=== PATIENT | male | born 1985 | race Two or more races ===

== ENCOUNTER 2016-12-20 16:29 | Emergency (ER) | payer SELFPAY ==
[2016-12-20] MEDS ORDERED: ONDANSETRON 4 MG/2ML 2 ML VIAL ONE (17:05)
[2016-12-20] MEDS ORDERED: SODIUM CHLORIDE 0.9% 1,000 ML ONE (17:05)
[2016-12-20 17:54] LABS: ALB/GLOB RATIO 1.6 (>1.0); ALBUMIN 4.4 gm/dL (3.5-5.7); CALCIUM 9.2 mg/dL (8.6-10.3)
[2016-12-20 17:57] LABS: ABSOLUTE NEUTROPHIL COUNT 4.3 K/mm3 (1.8-7.7); BASO % 0.4 % (0.2-1.0); EOS # 0.5 (0.0-0.5); EOS % 6.5 % (0.9-2.9); HEMATOCRIT 45.2 % (32.0-52.0); HEMOGLOBIN 15.6 gm/l (14.0-18.0); IMM NEUT # 0.1 K/mm3 (0-0.2); IMM NEUT% 0.6 % (0-1); LYMPH # 2.7 (1.0-4.8); LYMPH % 32.7 % (15-45); MEAN CELL VOLUME 89.3 fl (80.0-94.0); MEAN CORPUSCULAR HEMOGLOBIN 30.8 pg (27.0-31.0); MEAN CORPUSCULAR HGB CONC 34.5 g/dl (33.0-37.0); MEAN PLATELET VOLUME 10.6 fl (7.4-10.4); MONO # 0.5 (0.0-0.8); MONO % 6.5 % (4-12); NEUT % 53.3 % (43-75); PLATELET COUNT 253 K/mm3 (130-400); RED CELL DISTRIBUTION WIDTH 11.9 % (11.5-14.5)
--- NOTE | 2016-12-20 18:09 | US ---
ABDOMINAL-LIMITED COMPARISON: None. HISTORY: Right upper quadrant pain that radiates to back for 3 days. Nausea and vomiting. FINDINGS: Gallbladder: Contracted and full of shadowing stones up to 9 mm. Negative Strange's sign. No pericholecystic fluid. Common hepatic duct: 2.4 mm. Common bile duct: 6.0 mm IMPRESSION: 1. Cholelithiasis. No evidence of acute cholecystitis. Bile ducts are not dilated. The report was sent to the emergency department electronic medical record system 12/20/2016 at 18:09
== END 2016-12-20 19:31 | disposition home or self-care (01) ==
LOC: ED 16:29
DX: K80.20 Calculus of gallbladder without cholecystitis without obstruction (principal)
CPT/HCPCS: 83690; 85025; 80053; 76705; 99283 ×2; 96374; J2405; J7030